=== PATIENT | female | born 1985 | race Two or more races ===

== ENCOUNTER 2021-11-05 23:20 | Emergency (ER) | payer OTHER ==
[2021-11-05 23:30] VITALS: BP 152/98; PULSE 90; TEMP 97.7; BMI 41.1
[2021-11-06] MEDS ORDERED: KETOROLAC TROMETHAMINE 30 MG/1 ML VIAL IM ONE (00:03)
[2021-11-06] MEDS ORDERED: METHOCARBAMOL 500 MG TABLET PO ONE (00:03)
[2021-11-06] MEDS ORDERED: METHOCARBAMOL 500 MG TABLET ONE (00:17)
[2021-11-06] MEDS ORDERED: KETOROLAC TROMETHAMINE 30 MG/1 ML VIAL ONE (00:18)
== END 2021-11-06 00:38 | disposition home or self-care (01) ==
LOC: JER 23:20
PROC: 3E0233Z Introduction of Anti-inflammatory into Muscle, Percutaneous Approach (ICD-10-PCS; principal; 2021-11-06)
DX: M54.41 Lumbago with sciatica, right side (principal)
CPT/HCPCS: 99283-25

== ENCOUNTER 2023-05-23 23:19 | Emergency (ER) | payer OTHER ==
[2023-05-23 23:35] VITALS: BMI 41.1
[2023-05-24 01:18] LABS: URINE APPEARANCE CLEAR; URINE BILIRUBIN NEGATIVE (NEGATIVE); URINE COLOR YELLOW; URINE GLUCOSE (UA) 2+ (NEGATIVE); URINE KETONE NEGATIVE (NEGATIVE); URINE LEUK ESTERASE NEGATIVE (NEGATIVE); URINE NITRITE NEGATIVE (NEGATIVE); URINE PROTEIN NEGATIVE (NEGATIVE)
[2023-05-24 01:19] LABS: BASO % 0.5 % (0-2.0); EOS % 0.5 % (0-4.5); LYMPH % 38.9 % (8-40); MONO % 7.4 % (3.8-10.2); NEUT % 52.7 % (42.8-82.8)
[2023-05-24 01:22] VITALS: BP 161/96; PULSE 88; RESP 18; TEMP 98.5
[2023-05-24 01:38] LABS: HCG,QUALITATIVE URINE Negative
[2023-05-24 02:02] LABS: ALBUMIN 3.6 g/dl (3.4-5.0); BILIRUBIN,TOTAL 0.3 mg/dL (0.2-1); BLOOD UREA NITROGEN 10.2 mg/dL (7-18); CALCIUM 9.1 mg/dL (8.5-10.1); CREATININE 0.6 mg/dL (0.55-1.3); TOT PROT 8.1 g/dl (6.4-8.2)
[2023-05-24 07:14] LABS: HEMATOCRIT 32.3 % (32.4-45.2); HEMOGLOBIN 10.8 GM/dL (10.7-15.3); MCH 23.4 pg (25.7-33.7); MCHC 33.6 g/dl (32.0-36.0); MEAN CELL VOLUME 69.7 fl (80-96); MEAN PLT VOLUME 7.5 fl (7.5-11.1); PLATELET COUNT 305 10^3/uL (134-434); RBC 4.63 M/mm3 (3.60-5.2); RDW 16.1 % (11.6-15.6); WHITE BLOOD COUNT 9.5 K/mm3 (4.0-10.0)
== END 2023-05-24 01:24 | disposition home or self-care (01) ==
LOC: FER 23:19
DX: R10.84 Generalized abdominal pain (principal)
CPT/HCPCS: 36415; 80053; 81003; 81025; 84703; 85025; 87086; 99283-25

== ENCOUNTER 2025-03-10 07:00 | Day surgery (SDC) | payer OTHER ==
[2025-03-06 12:31] VITALS: BMI 36.0
[2025-03-10] MEDS ORDERED: PROPOFOL 40 ML ONE (09:43)
[2025-03-10] MEDS ORDERED: MIDAZOLAM HCL 2 MG/2 ML SINGLE DOSE VIAL ONE (09:43)
[2025-03-10] MEDS ORDERED: SUCCINYLCHOLINE CHLORIDE 200 MG/10 ML SYRINGE ONE (09:47)
[2025-03-10] MEDS ORDERED: IBUPROFEN 400 MG TABLET (FP) PO PRN (10:31)
[2025-03-10] MEDS ORDERED: ACETAMINOPHEN 325 MG TABLET (FP) PO PRN (10:31)
[2025-03-10] MEDS ORDERED: oxyCODONE HCL 5 MG TABLET PO PRN (10:31)
[2025-03-10] MEDS ORDERED: KETOROLAC TROMETHAMINE 30 MG/1 ML VIAL ONE (10:49)
[2025-03-10] MEDS ORDERED: ONDANSETRON 4 MG/2 ML VIAL ONE (10:49)
[2025-03-10] MEDS ORDERED: DEXAMETHASONE SOD PHOSPHATE 4 MG/1 ML VIAL ONE (10:49)
[2025-03-10] MEDS ORDERED: LIDOCAINE HCL/PF 2% SDV 5ML VIAL ONE (10:49)
[2025-03-10] MEDS ORDERED: ONDANSETRON 4 MG/2 ML VIAL IVPUSH PRN (11:16)
[2025-03-10] MEDS: ACETAMINOPHEN 1000 MG/100 ML BAG IVPB ONE (11:29)
[2025-03-10] MEDS: LACTATED RINGERS SOLUTION 1,000 ML IV SCH (11:30)
[2025-03-10 12:33] VITALS: BP 115/65; PULSE 68; RESP 18; TEMP 97.7
== END 2025-03-10 13:27 | disposition home or self-care (01) ==
LOC: JASU-SURG 07:00
PROVIDERS: ATTEND Obstetrics & Gynecology
PROC: 0UN98ZZ Release Uterus, Via Natural or Artificial Opening Endoscopic (ICD-10-PCS; principal; 2025-03-10 10:30)
DX: N85.6 Intrauterine synechiae (principal); D25.0 Submucous leiomyoma of uterus
CPT/HCPCS: 81025; 88305-TC; 94760; J0131